=== PATIENT | male | born 1975 | race Caucasian/White ===

== ENCOUNTER 2020-04-29 09:06 | Inpatient (IN) | payer OTHER ==
[~2020-04-29] VITALS: Ht 175.3 cm; Wt 103.2 kg
[2020-04-29] VITALS (10 sets, daily range): BP systolic 140–173; BP diastolic 94–110
[2020-04-29] MEDS ORDERED: TOPROL XL50 M1 PO (10:10)
[2020-04-29] MEDS ORDERED: PLAVIX75 M1 PO (10:11)
[2020-04-29] MEDS ORDERED: OMEPRAZOLE40 MG PO (10:12)
[2020-04-29 10:27] LABS: BASO % 0.5 % (0.0-1.0); EOS # 0.1 10*3/uL (0.0-0.4); EOS % 0.6 % (1.0-4.0); HEMATOCRIT 45.7 % (42.0-52.0); LYMPH # 1.5 10*3/uL (1.3-4.4); LYMPH % 18.1 % (27.0-41.0); MEAN CELL VOLUME 93.8 fl (80.0-94.0); MEAN CORPUSCULAR HGB 31.8 pg (27.0-31.0); MEAN CORPUSCULAR HGB CONC 33.9 g/dl (33.0-37.0); MEAN PLATELET VOLUME 9.8 fl (9.6-12.3); MONO # 0.7 10*3/uL (0.1-1.0); MONO % 8.3 % (3.0-9.0); NEUT % 72.3 % (47.0-73.0); PLATELET COUNT AUTOMATED 161 10*3/uL (130-400); RED BLOOD COUNT 4.87 10*6/uL (4.50-5.90); RED CELL DISTRI WIDTH 11.7 % (0-14.5); WHITE BLOOD COUNT 8.3 10*3/uL (4.8-10.8)
[2020-04-29 10:32] LABS: BILIRUBIN 1+ (NEGATIVE); BLOOD TRACE-INTACT (NEGATIVE); CLARITY CLOUDY (CLEAR); COLOR YELLOW (YELLOW); GLUCOSE NEGATIVE (NEGATIVE); KETONE NEGATIVE (NEGATIVE); LEUKO ESTERASE NEGATIVE (NEGATIVE); NITRITE NEGATIVE (NEGATIVE); UROBILINOGEN 0.2 E.U./dl (0.2-1.0)
[2020-04-29 10:37] LABS: ACT PARTIAL THROMBO TIME 24.2 SECONDS (20.0-32.1)
[2020-04-29 10:39] LABS: BACTERIA 2+; MUCOUS 3+
[2020-04-29 10:42] LABS: LIPASE 108 U/L (73-393)
[2020-04-29 10:44] LABS: ALBUMIN 3.7 gm/dl (3.1-4.5); ALKALINE PHOSPHATASE 106 U/L (45-117); BUN 9 mg/dl (7-24); CHLORIDE 110 mmol/L (98-107); CREATININE 1.11 mg/dL (0.70-1.30); POTASSIUM 3.4 mmol/L (3.5-5.1); SGOT/AST 24 IU/L (3-35); SGPT/ALT 44 U/L (12-78); SODIUM 140 mmol/L (136-145); TOTAL PROTEIN 7.1 gm/dL (6.4-8.2)
[2020-04-29 10:45] LABS: TROPONIN I < 0.015 ng/ml (<0.045)
--- NOTE | 2020-04-29 12:03 | NUR ---
DR MARADIAGA AWARE OF PT'S BLOOD PRESSURE AT THIS TIME.
--- NOTE | 2020-04-29 18:24 | NUR ---
A 44, admitted to , under the services of LUI Duque DO with a diagnosis of SUSPECTED COVID-19 VIRUS INFECTION AND DYSPNEA. Chief complaint is CHEST PAIN AND DYSPNEA. Patient arrived via stretcher from ER. Monitor applied. Initial assessment completed. Vital signs taken and recorded. LUI DUQUE DO notified of admission to the unit. Orders received. See assessment for past medical history, medications and allergies. Patient and/or family oriented to unit. [facility]. Clothing/patient valuable form completed. SHAMA LEWIS RN
--- NOTE | 2020-04-29 18:26 | NUR ---
DR. ONEAL NOTIFIED OF PATIENTS C/O CHEST PAIN AND LBP OF 08/01 WELL ANXIETY.
--- NOTE | 2020-04-29 20:30 | NUR ---
PT SLEEPING IN BED, AWAKENS EASILY. RESP-EASY AND REGULAR. NO C/O AT THIS TIME. CALL LIGHT IN REACH. SEE SHIFT ASSESSMENT.
--- NOTE | 2020-04-29 22:25 | NUR ---
DR. INGRAM CALLED AWARE OF BP AT 8PM 148/94 GAVE METOPROLOL, JUST RECHECKED AND BP 150/96 MANUALLY. HR IN 80'S. HE STATES WE WILL WATCH. NO C/O FROM PT AT THIS TIME. CALL LIGHT IN REACH.
--- NOTE | 2020-04-30 | NUR ---
PT RESTING IN BED. RESP-EASY AND REGULAR. NO C/O AT THIS TIME. CALL LIGHT IN REACH. SEE SHIFT ASSESSMENT.
--- NOTE | 2020-04-30 03:34 | NUR ---
PT SLEEPING IN BED ON BELLY. RESP-EASY AND REGULAR. CALL LIGHT IN REACH.
[2020-04-30 05:20] VITALS: BP 142/98
--- NOTE | 2020-04-30 05:20 | NUR ---
IV started right forearm with #22 angiocath after 1 attempts. The IV site was prepped with Chloraprep. Heparin lock attached. Sterile dressing applied. Patient tolerated precedure well. Procedure performed according to [facility] policy & procedure. PT HAD OLD IV SITE SITTING UP ON TABLE. STATES HE DIDN'T KNOW IT WAS OUT. NO C/O AT THIS TIME. CALL LIGHT IN REACH. HERNÁN IZQUIERDO
[2020-04-30 05:38] LABS: BUN 7 mg/dl (7-24); CHLORIDE 110 mmol/L (98-107); CREATININE 0.88 mg/dL (0.70-1.30); POTASSIUM 3.6 mmol/L (3.5-5.1); SODIUM 140 mmol/L (136-145)
--- NOTE | 2020-04-30 05:40 | NUR ---
CALLED DR. MATA MADE AWARE CRITICAL BLOOD CULTURES. ALSO MADE AWARE PT BP THIS AM 142/98 MANUALLY. NO NEW ORDERS GIVEN.
[2020-04-30 05:43] LABS: CHOLESTEROL 214 mg/dL (<200); FREE T4 1.12 ng/dl (0.76-1.46); HDL CHOLESTEROL 46 mg/dl (40-60); LDL CHOLESTEROL 147 mg/dL (9-159); TRIGLYCERIDES 106 mg/dl (<150); VLDL CHOLESTEROL 21 mg/dL (6-40)
[2020-04-30 05:49] LABS: THYROID STIM HORMONE (HS) 0.759 uIU/ml (0.358-4.75)
--- NOTE | 2020-04-30 07:00 | NUR ---
ARRIVED OF SHIFT, REPORT RECEIVED FROM OFF GOING NURSE, ASSUMED CARE OF PT.
--- NOTE | 2020-04-30 07:10 | NUR ---
INTRODUCED TO PATIENT BED IN LOW POSITION WITH WHEEL LOCKS ENGAGED, SIDE RAILS UP X 2 FOR TURNING AND REPOSTIONING, CALL LIGHT WITHIN REACH, NO NEEDS VOICED AT THIS TIME, WHITE BOARD UPDATED.
[2020-04-30 08:00] VITALS: BP 160/100
[2020-04-30 08:00] LABS: VITAMIN D, 25-HYDROXY 24.8 ng/mL (30-100)
--- NOTE | 2020-04-30 08:20 | NUR ---
PATIENT C/O CHEST PAIN 07/01 MEDICATED WITH NORCO ORDERED PRN.
[2020-04-30 08:51] LABS: BASO # 0.1 10*3/uL (0.0-0.1); BASO % 0.6 % (0.0-1.0); EOS # 0.1 10*3/uL (0.0-0.4); EOS % 0.8 % (1.0-4.0); HEMATOCRIT 45.5 % (42.0-52.0); LYMPH # 2.3 10*3/uL (1.3-4.4); LYMPH % 27.1 % (27.0-41.0); MEAN CELL VOLUME 95.4 fl (80.0-94.0); MEAN CORPUSCULAR HGB 32.3 pg (27.0-31.0); MEAN CORPUSCULAR HGB CONC 33.8 g/dl (33.0-37.0); MEAN PLATELET VOLUME 9.6 fl (9.6-12.3); MONO % 11.6 % (3.0-9.0); NEUT # 5.1 10*3/uL (2.3-7.9); NEUT % 59.6 % (47.0-73.0); PLATELET COUNT AUTOMATED 149 10*3/uL (130-400); RED BLOOD COUNT 4.77 10*6/uL (4.50-5.90); RED CELL DISTRI WIDTH 11.7 % (0-14.5); WHITE BLOOD COUNT 8.6 10*3/uL (4.8-10.8)
--- NOTE | 2020-04-30 09:20 | NUR ---
PATIENT REPORTS GOOD RELEIF FROM NORCO GIVEN X 1 HOUR AGO, PATIENT REPORTS PAIN 5/10
--- NOTE | 2020-04-30 10:49 | NUR ---
HERE NOTIFIED OF CONSULT.
--- NOTE | 2020-04-30 11:10 | NUR ---
Shift chart check completed.
[2020-04-30 12:00] VITALS: BP 144/92
--- NOTE | 2020-04-30 13:49 | NUR ---
RECEIVED CALL FROM DR. DE ANDA, ADVISED THAT PT DOES NOT NEED THE 100 OF LOVENOX HE REQUESTED I CALL DR. ONEAL TO LET HER KNOW THAT STANDARD DVT PROTICAL IS OK. CALL AND SPOKE WITH DR. ONEAL AND SHE VERSED SHE WILL CHANGE.
--- NOTE | 2020-04-30 14:47 | NUR ---
PATIENT C/O CHEST PAIN AND TIGHTNESS DR. ALFARO AWARE STATES MUSCLE SKELETAL NORCO GIVEN ORDERED.
--- NOTE | 2020-04-30 15:31 | NUR ---
CALL PLACED TO [facility] FOR DR. PAN CONSULT, SPOKE WITH ELFEGO WAS ADVISED DR. CHAVARRIA WAS COVERING AND SHE WOULD LET HIM KNOW ABOUT CONSULT.
[2020-04-30 16:00] VITALS: BP 177/113
[2020-04-30 16:25] VITALS: BP 180/116
--- NOTE | 2020-04-30 16:30 | NUR ---
DR. CHAVARRIA HERE IN REGARDS TO CONSULT, GAVE REPORT ON PATIENTS HISTORY, ADVISED OF ELEVATED BP THE LATEST BEING 177/113. DR. WESTFALL REQUESTED RECORDS FROM [facility], PATIENT SIGNED MEDICAL RELEASE FORM.
--- NOTE | 2020-04-30 17:20 | NUR ---
CALLED HOSPITALIST LINE TO ADVISE OF ELEVATED BP, SPOKE TO DR. ONEAL ADVISED THAT DR. CHAVARRIA WAS AWARE OF CURRENT BP OF 177/113, I ALSO RECHECKED BP MANUALLY AND IT WAS 180/116.
[2020-04-30 20:00] VITALS: BP 136/92
--- NOTE | 2020-04-30 20:35 | NUR ---
PT RESTING IN BED. NO SIGNS OF ACUTE DISTRESS NOTED. RESP-EASY AND REGULAR. PT C/O CHEST PRESSURE MIDSTERNAL/EPIGASTRIC AREA PAIN, STATES INCREASES WITH DEEP BREATHS. RATES PAIN 9 ON PAIN SCALE 0-10. MEDICATED WITH NORCO PO PER PRN ORDER, SEE EMAR. ALSO GAVE NEW BP MEDICATION ORDERED FOR BP 136/92 MANUALLY. CALL LIGHT IN REACH.
--- NOTE | 2020-04-30 20:50 | NUR ---
CALLED DR. LIRA MADE AWARE PT C/O CHEST PRESSURE TO MIDSTERNAL/EPIGASTRIC AREA. AWARE MEDICATIONS GIVEN AND BP. NO NEW ORDERS. WILL KEEP AN EYE ON HIM PER DR. LIRA.
--- NOTE | 2020-04-30 21:30 | NUR ---
PT RESTING IN BED. STATES PAIN MEDICATION HELPS. CALL LIGHT IN REACH.
--- NOTE | 2020-04-30 23:05 | NUR ---
PT IN BATHROOM CLEANING UP, RETURNS TO BED. MEDICATED WITH RESTORIL PO PER PRN ORDER, SEE EMAR. BP 150/94 MANUALLY.
[2020-05-01] VITALS: BP 150/92
--- NOTE | 2020-05-01 01:00 | NUR ---
PT RESTING IN BED. C/O MID STERNAL CHEST PRESSURE/EPIGASTRIC AREA PRESSURE, MEDICATED WITH NORCO PO PER PT REQUEST, SEE EMAR. CALL LIGHT IN REACH.
--- NOTE | 2020-05-01 02:00 | NUR ---
RESTING IN BED. STATES PAIN MEDICATION HELPS A LITTLE. CALL LIGHT IN REACH.
--- NOTE | 2020-05-01 02:56 | NUR ---
CALLED DR. LIRA MADE AWARE PT C/O CHEST PRESSURE EPIGASTRIC AREA/MIDSTERNAL PRESSURE. AWARE GIVING NORCO. BP 150/94 MANUALLY. NO NEW ORDERS.
[2020-05-01 04:00] VITALS: BP 158/98
--- NOTE | 2020-05-01 04:30 | NUR ---
PT RESTING IN BED. RUBBING CHEST. STATES FEELS LIKE CHEST IS GOING TO EXPLODE. RATES PRESSURE/PAIN 10 ON PAIN SCALE 0-10. MEDICATED WITH MORPHINE IV PER PRN ORDER, SEE EMAR. BP 158/98 MANUALLY, HR-60'S. CALL LIGHT IN REACH.
--- NOTE | 2020-05-01 04:35 | NUR ---
CALLED DR. LIRA MADE AWARE PT COMPLAINTS. ORDERING GI COCKTAIL.
--- NOTE | 2020-05-01 05:30 | NUR ---
PT MEDICATED WITH GI COCKTAIL PER ORDER, SEE EMAR. FOR C/O CHEST/EPIGASTRIC AREA PRESSURE. SEE EMAR. STATES OTHER PAIN MEDICATION HELPED SOME. CALL LIGHT IN REACH.
[2020-05-01 06:09] LABS: BASO % 0.5 % (0.0-1.0); EOS # 0.1 10*3/uL (0.0-0.4); EOS % 1.3 % (1.0-4.0); HEMATOCRIT 43.1 % (42.0-52.0); LYMPH # 2.7 10*3/uL (1.3-4.4); LYMPH % 32.4 % (27.0-41.0); MEAN CELL VOLUME 94.7 fl (80.0-94.0); MEAN CORPUSCULAR HGB 32.1 pg (27.0-31.0); MEAN CORPUSCULAR HGB CONC 33.9 g/dl (33.0-37.0); MEAN PLATELET VOLUME 9.8 fl (9.6-12.3); MONO # 0.8 10*3/uL (0.1-1.0); MONO % 9.4 % (3.0-9.0); NEUT # 4.6 10*3/uL (2.3-7.9); PLATELET COUNT AUTOMATED 138 10*3/uL (130-400); RED BLOOD COUNT 4.55 10*6/uL (4.50-5.90); RED CELL DISTRI WIDTH 11.6 % (0-14.5); WHITE BLOOD COUNT 8.2 10*3/uL (4.8-10.8)
[2020-05-01 06:28] LABS: ALBUMIN 3.4 gm/dl (3.1-4.5); ALKALINE PHOSPHATASE 96 U/L (45-117); BUN 7 mg/dl (7-24); CHLORIDE 109 mmol/L (98-107); CREATININE 1.03 mg/dL (0.70-1.30); POTASSIUM 3.7 mmol/L (3.5-5.1); SGOT/AST 23 IU/L (3-35); SGPT/ALT 46 U/L (12-78); SODIUM 141 mmol/L (136-145); TOTAL PROTEIN 6.6 gm/dL (6.4-8.2)
--- NOTE | 2020-05-01 07:41 | NUR ---
DR ONEAL NOTIFIED THAT COVID SWAB WAS NEGATATIVE PER LAB. PT IS TO BE TAKEN OUT OF ISOLATION.
[2020-05-01 08:00] VITALS: BP 142/78
--- NOTE | 2020-05-01 08:07 | NUR ---
MEDICATED WITH PRN PO NORCO FOR MID TO LEFT STERNAL CHEST PAIN, SHARP AND INCREASES WITH INSPIRATION.
--- NOTE | 2020-05-01 09:00 | NUR ---
Barber Shop Operator in to talk to patient. Patient states lives at home with family. There are no steps in the home. Physician: out of state Pharmacy: [facility] Home health services: no Patient's level of ADLs: INDEPENDENT Patient has working utilities: all working DME: none Follow-up physician's appointment after d/c: will be made by hospitalist nurse director upon discharge Does patient want to access PORTAL?: no Discharge plan discussed with patient, he lives at home with family, he is independent in adls and ambulation, he states he will return home when medically stable and denies any home needs, case management will follow. SUMA COTTON
--- NOTE | 2020-05-01 09:00 | NUR ---
PRN PO NORCO EFFECTIVE, PER PATIENT.
[2020-05-01 12:00] VITALS: BP 153/94
--- NOTE | 2020-05-01 13:20 | NUR ---
MEDICATED WITH PRN PO NORCO FOR MIDSTERNAL CHEST PAIN.
--- NOTE | 2020-05-01 14:15 | NUR ---
PRN PO NORCO EFFECTIVE, PER PATIENT.
--- NOTE | 2020-05-01 14:16 | NUR ---
PRN PO NORCO EFFECTIVE, PER PATIENT.
--- NOTE | 2020-05-01 15:09 | NUR ---
MEDICATED WITH PRN IV MORPHINE FOR PAIN TO CENTER OF CHEST.
[2020-05-01 16:00] VITALS: BP 158/95
--- NOTE | 2020-05-01 16:00 | NUR ---
PRN IV MORPHINE EFFECTIVE, PER PATIENT.
--- NOTE | 2020-05-01 18:39 | NUR ---
MEDICATED WITH PRN PO NORCO FOR MIDSTERNAL CHEST PAIN.
--- NOTE | 2020-05-01 19:38 | NUR ---
RESTING IN BED; VOICES NO FUTHER C/O PAIN. CALL LIGHT WITHIN REACH.
[2020-05-01 20:00] VITALS: BP 143/94
--- NOTE | 2020-05-01 21:32 | NUR ---
PT. STATES THAT HIS CHEST HURST; RESTING COMFORTABLY IN BED TALKING ON PHONE. NO DISTRESS NOTED.
--- NOTE | 2020-05-01 21:35 | NUR ---
VOICES NO C/O PAIN AT THIS TIME; PAIN MEDICATION GIVEN EARLIER APPARENTLY EFFECTIVE.
--- NOTE | 2020-05-01 21:36 | NUR ---
MEDICATED WITH MS SLOW IV PUSH FOR C/O CHEST PAIN RATED A 9/10.
--- NOTE | 2020-05-01 22:15 | NUR ---
RESTING IN BED; VOICES NO C/O AT THIS TIME. CALL LIGHT WITHIN REACH.
[2020-05-02] VITALS: BP 162/96
--- NOTE | 2020-05-02 | NUR ---
IV PAINFUL; WILL DISCONTINUE & RESTART.
--- NOTE | 2020-05-02 00:04 | NUR ---
MEDICATED WITH NORCO FOR C/O CHEST PAIN.
--- NOTE | 2020-05-02 01:00 | NUR ---
IV started right forearm with #22 angiocath after ast attempts. The IV site was prepped with Chloraprep. Heparin lock attached. Sterile dressing applied. Patient tolerated precedure well. Procedure performed according to [facility] policy & procedure. JOSE ARMANDO ROBBINS
--- NOTE | 2020-05-02 01:00 | NUR ---
VOICES NO C/O AT THIS TIME OF CHEST PAIN. PAIN MEDICATION APPARENTLY EFFECTIVE.
[2020-05-02 03:00] VITALS: BP 152/94
[2020-05-02 06:33] LABS: BASO # 0.1 10*3/uL (0.0-0.1); BASO % 0.5 % (0.0-1.0); EOS # 0.1 10*3/uL (0.0-0.4); EOS % 1.5 % (1.0-4.0); HEMATOCRIT 44.3 % (42.0-52.0); LYMPH # 2.1 10*3/uL (1.3-4.4); LYMPH % 22.2 % (27.0-41.0); MEAN CELL VOLUME 93.9 fl (80.0-94.0); MEAN CORPUSCULAR HGB 32.4 pg (27.0-31.0); MEAN CORPUSCULAR HGB CONC 34.5 g/dl (33.0-37.0); MEAN PLATELET VOLUME 9.6 fl (9.6-12.3); MONO # 0.9 10*3/uL (0.1-1.0); MONO % 9.9 % (3.0-9.0); NEUT # 6.2 10*3/uL (2.3-7.9); NEUT % 65.6 % (47.0-73.0); PLATELET COUNT AUTOMATED 145 10*3/uL (130-400); RED BLOOD COUNT 4.72 10*6/uL (4.50-5.90); RED CELL DISTRI WIDTH 11.6 % (0-14.5); WHITE BLOOD COUNT 9.5 10*3/uL (4.8-10.8)
[2020-05-02 06:56] LABS: BUN 8 mg/dl (7-24); CHLORIDE 105 mmol/L (98-107); CREATININE 1.02 mg/dL (0.70-1.30); POTASSIUM 3.8 mmol/L (3.5-5.1); SODIUM 140 mmol/L (136-145)
--- NOTE | 2020-05-02 07:54 | NUR ---
PT REQUESTED PO NORCO PER PRN ORDER FOR C/O MID-STERNAL CHEST PAIN. RATES PAIN /10. WILL MONITOR EFFECTIVENESS. RESPIRATIONS EASY, REGULAR ON RA. CALL LIGHT WITHIN REACH.
[2020-05-02 08:00] VITALS: BP 152/92; BP 152/94
--- NOTE | 2020-05-02 08:31 | NUR ---
'S OFFICE CALLED AT THIS TIME REGARDING BLOOD CULTURE RESULTS. AWAITING RETURN PHONE CALL.
--- NOTE | 2020-05-02 08:34 | NUR ---
ON FLOOR AND NOTIFIED REGARDING BLOOD CULTURE RESULT.
--- NOTE | 2020-05-02 08:54 | NUR ---
NORCO RELIEVING PAIN PER PT. WILL CONTINUE TO MONITOR.
--- NOTE | 2020-05-02 09:00 | NUR ---
case management visits with patient, patient will be returning home when discharged, denies any home needs, possibly discharge for today, case management will follow
[2020-05-02] MEDS ORDERED: VITAMIN D350 MC2 PO (10:24)
[2020-05-02] MEDS ORDERED: ATORVASTATIN CA40 M1 PO (10:24)
[2020-05-02] MEDS ORDERED: AMLODIPINE BESYL5 MG PO (10:24)
[2020-05-02] MEDS ORDERED: PANTOPRAZOLE SO40 MG PO (10:24)
--- NOTE | 2020-05-02 10:35 | NUR ---
Discharge instructions reviewed with patient. Patient receptive and verbalizes understanding. Follow-up care arranged. Written instructions given to patient. FRANSISCO REY
[2020-05-02] MEDS ORDERED: COZAAR50 M1 PO (10:54)
--- NOTE | 2020-05-02 11:26 | NUR ---
SPOKE TO PATIENT'S MOTHER REGARDING NEW MEDICATION ADDED TO DISCHARGE PLAN. PATIENT'S MOTHER AWARE. MEDICATION SENT TO PHARMACY.
== END 2020-05-02 10:35 | disposition home or self-care (01) | DRG 243 ==
LOC: ED 09:06 → EDHOLD 14:37 → 4E 14:37
PROVIDERS: Emergency Medicine; Family Medicine; Internal Medicine; ADMIT Internal Medicine
DX: K21.0 Gastro-esophageal reflux disease with esophagitis (principal); E87.2 Acidosis; E87.6 Hypokalemia; E87.8 Other disorders of electrolyte and fluid balance, not elsewhere classified; R73.9 Hyperglycemia, unspecified; F17.210 Nicotine dependence, cigarettes, uncomplicated; I25.10 Atherosclerotic heart disease of native coronary artery without angina pectoris; I10 Essential (primary) hypertension; F41.1 Generalized anxiety disorder; R91.8 Other nonspecific abnormal finding of lung field; B95.7 Other staphylococcus as the cause of diseases classified elsewhere; J98.11 Atelectasis; R78.81 Bacteremia; F12.10 Cannabis abuse, uncomplicated; E66.9 Obesity, unspecified; E78.5 Hyperlipidemia, unspecified; Z20.828 Contact with and (suspected) exposure to other viral communicable diseases; Z88.0 Allergy status to penicillin; Z71.6 Tobacco abuse counseling; Z88.2 Allergy status to sulfonamides; Z82.49 Family history of ischemic heart disease and other diseases of the circulatory system; Z95.5 Presence of coronary angioplasty implant and graft; Z91.14 Patient's other noncompliance with medication regimen; I25.2 Old myocardial infarction; Z79.899 Other long term (current) drug therapy; Z80.1 Family history of malignant neoplasm of trachea, bronchus and lung; Z68.33 Body mass index [BMI] 33.0-33.9, adult

== ENCOUNTER 2020-10-28 18:36 | Observation (INO) | payer OTHER ==
[~2020-10-28] VITALS: Ht 175.2 cm; Wt 100.4 kg
[~2020-10-28 18:36] MED LIST: AMLODIPINE BESYL5 MG PO; ATORVASTATIN CA40 M1 PO; COZAAR50 M1 PO; OMEPRAZOLE40 MG PO; PANTOPRAZOLE SO40 MG PO; PLAVIX75 M1 PO; TOPROL XL50 M1 PO; VITAMIN D350 MC2 PO
[2020-10-28 18:42] VITALS: BP 152/107
[2020-10-28 18:50] VITALS: BP 155/97
[2020-10-28 18:51] LABS: BASO # 0.1 10*3/uL (0.0-0.1); BASO % 0.5 % (0.0-1.0); EOS % 0.3 % (1.0-4.0); HEMATOCRIT 45.6 % (42.0-52.0); LYMPH # 2.9 10*3/uL (1.3-4.4); LYMPH % 28.4 % (27.0-41.0); MEAN CELL VOLUME 90.3 fl (80.0-94.0); MEAN CORPUSCULAR HGB 31.3 pg (27.0-31.0); MEAN CORPUSCULAR HGB CONC 34.6 g/dl (33.0-37.0); MEAN PLATELET VOLUME 8.7 fl (9.6-12.3); MONO % 9.3 % (3.0-9.0); NEUT # 6.3 10*3/uL (2.3-7.9); NEUT % 61.2 % (47.0-73.0); PLATELET COUNT AUTOMATED 258 10*3/uL (130-400); RED BLOOD COUNT 5.05 10*6/uL (4.50-5.90); RED CELL DISTRI WIDTH 12.1 % (0-14.5); WHITE BLOOD COUNT 10.3 10*3/uL (4.8-10.8)
[2020-10-28 19:03] LABS: INTERNATIONAL NORM RATIO 0.9 (2.0-3.5)
[2020-10-28 19:08] LABS: ALBUMIN 4.1 gm/dl (3.1-4.5); ALKALINE PHOSPHATASE 155 U/L (45-117); BUN 8 mg/dl (7-24); CHLORIDE 110 mmol/L (98-107); CREATININE 0.96 mg/dL (0.70-1.30); POTASSIUM 3.7 mmol/L (3.5-5.1); SGOT/AST 19 IU/L (3-35); SGPT/ALT 23 U/L (12-78); SODIUM 140 mmol/L (136-145); TOTAL PROTEIN 7.9 gm/dL (6.4-8.2)
[2020-10-28 19:09] VITALS: BP 152/105
[2020-10-28] MEDS ORDERED: IMDUR SA30 MG PO (19:10)
--- NOTE | 2020-10-28 19:13 | NUR ---
PT IS RESTLESS IN BED, "STATING HE DOES NOT FEEL RIGHT". O2 DECREASED TO 2L. SPO2 WAS AT 100%. PER VO BY SLAVA IN ROOM.
[2020-10-28 19:18] LABS: TROPONIN I < 0.015 ng/ml (<0.045)
[2020-10-28 20:05] VITALS: BP 145/95
--- NOTE | 2020-10-28 20:06 | NUR ---
PT STILL IN PAIN/RESTLESS, DR ENG NOTIFIED. SAFTEY PRECAUTIONS IN PLACE.
[2020-10-28 21:15] LABS: BILIRUBIN Negative (Negative); BLOOD Negative (Negative); CLARITY Clear (Clear); COLOR Yellow (Yellow); GLUCOSE Negative (Negative); KETONE 1+ (Negative); LEUKO ESTERASE Negative (Negative); NITRITE Negative (Negative); SPECIFIC GRAVITY 1.025 (1.001-1.030)
[2020-10-28 21:19] LABS: PH >= 9.0 (4.5-8.0); URINE AMPHETAMINES > 1000 (1000ng/ml); URINE BARBITURATES < 200 (200ng/ml); URINE BENZODIAZEPINES < 200 (200ng/ml); URINE CANNABINOIDS (THC) > 50 (50ng/ml); URINE COCAINE < 300 (300ng/ml); URINE METHADONE < 300 (300ng/ml); URINE OPIATES < 300 (300ng/ml)
[2020-10-28 21:23] LABS: URINE PHENCYCLIDINE < 25 (25ng/ml)
--- NOTE | 2020-10-28 21:25 | NUR ---
PATIENT REQUESTING SOMETHING FOR HIS PAIN. PROVIDER NOTIFIED.
[2020-10-28 21:27] LABS: BACTERIA TRACE; EPITHELIAL CELLS 0-2; RBC 0-2 rbc/hpf (0-2); WBC 0-2 wbc/hpf (0-5)
--- NOTE | 2020-10-28 21:36 | NUR ---
REPORT FROM [facility].
[2020-10-28 23:04] VITALS: BP 146/94
--- NOTE | 2020-10-28 23:21 | NUR ---
PATIENT IS RESTING AT THIS TIME. VITAL SIGNS STABLE. NO COMPLAINTS. PATIENT IS LAYING IN BED ON HIS PHONE. CALL LIGHT IN REACH.
--- NOTE | 2020-10-28 23:35 | NUR ---
NURSE TO NURSE REPORT GIVEN TO THIS RN
[2020-10-29] VITALS (7 sets, daily range): BP systolic 124–170; BP diastolic 75–120
--- NOTE | 2020-10-29 00:27 | NUR ---
A 45, admitted to 4E, under the services of JOHN Maldonado DO with a diagnosis of CHEST PAIN. Chief complaint is CHEST PAIN. Patient arrived via stretcher from ER. Monitor applied. Initial assessment completed. Vital signs taken and recorded. JOHN MALDONADO DO notified of admission to the unit. Orders received. See assessment for past medical history, medications and allergies. Patient and/or family oriented to unit. visitation policy reviewed. Clothing/patient valuable form completed. JORGE WARE
[2020-10-29] MEDS ORDERED: ASPIRIN ADULT L81 M1 PO (00:36)
--- NOTE | 2020-10-29 00:36 | NUR ---
MED REC COMPLETED WITH PATIENT ALERT AND ORIENTED
--- NOTE | 2020-10-29 00:42 | NUR ---
PATIENT STATES HE IS HERE VISITING FAMILY FROM [place]. STATES IF HE WERE TO GET ANY MEDICATIONS TO TAKE HOME, HE WOULD WANT THEM SENT TO HIS [facility] IN [place].
--- NOTE | 2020-10-29 00:46 | NUR ---
ATTEMPTED TO CALL RESIDENT REGARDING PATIENT'S BLOOD PRESSURE AND CHEST PAIN. NO ANSWER
--- NOTE | 2020-10-29 00:48 | NUR ---
DR MATA CALLED BACK AND MADE AWARE OF C/O CHEST PAIN AND BLOOD PRESSURE. STATES TO GIVE MORPHINE NOW
--- NOTE | 2020-10-29 00:50 | NUR ---
MEDICATED WITH PRN MORPHINE FOR C/O CHEST PAIN RATED 9/10 ON A 0/10 PAIN SCALE
--- NOTE | 2020-10-29 01:02 | NUR ---
DR PAN'S ANSWERING SERVICE AWARE OF CONSULT
--- NOTE | 2020-10-29 01:50 | NUR ---
MORPHINE NOT EFFECTIVE PER PATIENT
--- NOTE | 2020-10-29 01:54 | NUR ---
DR MATA AWARE OF REPEAT BLOOD PRESSURE AND MORPHINE NOT BEING EFFECTIVE FOR CHES PAIN
--- NOTE | 2020-10-29 02:14 | NUR ---
PATIENT COMPLAINING OF "TERRIBLE" CHEST PAIN. PATIENT GRABBING CHEST, DIAPHORETIC. DR MATA MADE AWARE AND STATES HE WILL COME AND SEE THE PATIENT. STAT EKG ORDERED
--- NOTE | 2020-10-29 02:24 | NUR ---
DR MATA IN ROOM TO SEE PATIENT
--- NOTE | 2020-10-29 02:35 | NUR ---
DR MATA AWARE OF PATIENT C/O HAND NUMBNESS AND HEART RATE 120. STATES TO GIVE THE ATIVAN AND SEE HOW HE DOES.
--- NOTE | 2020-10-29 02:36 | NUR ---
PATIENT TREMBLING. STATES HE CANNOT FEEL HANDS OR FACE. MEDICATED WITH ONE TIME ATIVAN AND LOPRESSOR PER ORDER.
--- NOTE | 2020-10-29 02:48 | NUR ---
DR MATA MADE AWARE OF PATIENT STATING THAT HE USE TO HAVE SEIZERS AND THIS WOULD HAPPEN BEFORE HE HAD THEM. MED CLAIMS HISTORY STATES HE FILLED OXCARBAZEPINE LAST OCTOBER 2019. DR MATA MADE AWARE. PATIENT STATING HE CANNOT FEEL HANDS, ARMS, OR FACE.
--- NOTE | 2020-10-29 02:59 | NUR ---
MEDICATED WITH PRN NORCO FOR C/O CHEST PAIN RATED 9/10 ON A 0/10 PAIN SCALE. SIDE RAILS PADDED AT THIS TIME FOR SEIZURE PRECAUTIONS.
[2020-10-29 06:09] LABS: BASO # 0.1 10*3/uL (0.0-0.1); BASO % 0.5 % (0.0-1.0); EOS % 0.3 % (1.0-4.0); HEMATOCRIT 45.2 % (42.0-52.0); LYMPH # 2.7 10*3/uL (1.3-4.4); LYMPH % 23.3 % (27.0-41.0); MEAN CELL VOLUME 92.8 fl (80.0-94.0); MEAN CORPUSCULAR HGB CONC 33.4 g/dl (33.0-37.0); MEAN PLATELET VOLUME 8.9 fl (9.6-12.3); MONO # 1.3 10*3/uL (0.1-1.0); MONO % 10.7 % (3.0-9.0); NEUT # 7.6 10*3/uL (2.3-7.9); NEUT % 64.8 % (47.0-73.0); PLATELET COUNT AUTOMATED 201 10*3/uL (130-400); RED BLOOD COUNT 4.87 10*6/uL (4.50-5.90); WHITE BLOOD COUNT 11.7 10*3/uL (4.8-10.8)
[2020-10-29 06:35] LABS: BUN 10 mg/dl (7-24); CHLORIDE 109 mmol/L (98-107); CHOLESTEROL 126 mg/dL (<200); CREATININE 0.91 mg/dL (0.70-1.30); FREE T4 1.12 ng/dl (0.76-1.46); HDL CHOLESTEROL 51 mg/dl (40-60); LDL CHOLESTEROL 40 mg/dL (9-159); SODIUM 140 mmol/L (136-145); TRIGLYCERIDES 174 mg/dl (<150); VLDL CHOLESTEROL 35 mg/dL (6-40)
[2020-10-29 06:41] LABS: THYROID STIM HORMONE (HS) 0.926 uIU/ml (0.358-4.75)
[2020-10-29 08:04] LABS: VITAMIN D, 25-HYDROXY 15.5 ng/mL (30-100)
--- NOTE | 2020-10-29 08:30 | NUR ---
Aquatics Director in to talk to patient. Patient states lives at home with his mother and father. There are 0 steps in the home. Physician: [facility] in [place], [place] Pharmacy: [facility] in [place], [place] Home health services: none Patient's level of ADLs: INDEPENDENT Patient has working utilities: yes DME: none Follow-up physician's appointment after d/c: he prefers to follow with his PCP on discharge Does patient want to access PORTAL?: no Discharge plan discussed with patient. He lives at home with his mother and father. He is here visiting from [place], [place]. He states he comes in to visit occasionally for a couple of weeks. Discussed home health care services and he declines. When medically stable he will be discharged to home. CM will continue to follow for any discharge planning needs. He states one of his friends will provide transportation on discharge. SARAH GRAHAM
--- NOTE | 2020-10-29 10:00 | NUR ---
PATIENT C/O CHEST PAIN. GAVE MORPHIN PERSCRIBED. PATIENT REPORTED RELIEF WITHIN 5 MIN.
--- NOTE | 2020-10-29 12:00 | NUR ---
INFORMED CONSENT SIGNED FOR LEXISCAN STRESS TEST WITH DR. ALVAREZ RESTING EKG NSR, HR 93, BP 138/80. PULSE OX 97% AND LUNGS CLEAR. COMPLETED ONE MINUTE OF LEXISCAN PROTOCOL RECEIVING LEXISCAN 0.4MG OVER 10 SECONDS[address] NO ARRHTHMIAS OR ST CHANGES NOTED. PT C/O SHAKEY FEELING AND BEING HOT. LAST RECOVERY HR 128, BP 138/80. WAITING NUCLEAR SCANNING IN STABLE CONDITION.
[2020-10-29] MEDS ORDERED: METOPROLOL SUC100 M1 PO (15:29)
--- NOTE | 2020-10-29 16:29 | NUR ---
Discharge instructions reviewed with patient/family. Patient receptive and verbalizes understanding. Follow-up care arranged. Written instructions given to patient/family. DILEEP CHARLES
== END 2020-10-29 16:29 | disposition home or self-care (01) ==
LOC: ED 18:36 → EDHOLD 22:45 → 4E 23:38
PROVIDERS: Emergency Medicine; Internal Medicine; ADMIT Internal Medicine; ATTEND Internal Medicine
DX: R07.2 Precordial pain (principal); I25.10 Atherosclerotic heart disease of native coronary artery without angina pectoris; F41.9 Anxiety disorder, unspecified; K21.9 Gastro-esophageal reflux disease without esophagitis; I10 Essential (primary) hypertension; F17.210 Nicotine dependence, cigarettes, uncomplicated; I25.2 Old myocardial infarction; R65.10 Systemic inflammatory response syndrome (SIRS) of non-infectious origin without acute organ dysfunction; R00.0 Tachycardia, unspecified; R06.82 Tachypnea, not elsewhere classified; I16.1 Hypertensive emergency; E87.8 Other disorders of electrolyte and fluid balance, not elsewhere classified; R73.9 Hyperglycemia, unspecified; E83.41 Hypermagnesemia; R74.8 Abnormal levels of other serum enzymes; Z71.6 Tobacco abuse counseling; Z98.890 Other specified postprocedural states; Z20.828 Contact with and (suspected) exposure to other viral communicable diseases